=== PATIENT | female | born 1980 | race Caucasian/White ===

== ENCOUNTER → 2018-06-06 | Day surgery (SDC) | payer OTHER ==
[2018-05-29 10:21] VITALS: Ht 165.1 cm; Wt 71.4 kg
[~2018-06-06] VITALS: Ht 165.1 cm; Wt 71.4 kg
[~2018-06-06] MED LIST: ATROPINE SULFATE 0.1 MG/ML 5ML SYR IV PRN; CEFAZOLIN 2000MG IV PUSH 15 ML IV SCH; DIPH25CA5 PO; ERGO500037 PO; EpHEDrine SULFATE INJ 50 MG/ML AMP IV PRN; FENTANYL CITRATE INJ 50 MCG/1 ML 2 ML VIAL IV PRN; HYDR-5688 PO; HYDROCODONE/ACETAMIN 5/325MG TAB PO PRN; HYDROmorphone INJ 1 MG/ML SYR IV PRN; LACTATED RINGER'S 1000ML 1,000 ML IV SCH; LIDOCAINE HCL 1% 20 ML VIAL ONE; MIDAZOLAM HCL 1 MG/ML 2ML VIAL ONE; ONDANSETRON INJ 2 MG/ML 2 ML VIAL IV PRN; PHENYLEPHRINE 100MCG/ML 5ML SYR IV PRN; PROMETHAZINE HCL INJ 12.5 MG in SODIUM CHLORIDE 0.9% 50ML 50 ML IV PRN; PROPOFOL IV EMULSION 10 MG/ML 20 ML VIAL ONE; SERT50TA PO; SODIUM CHLORIDE 0.9% 1000ML 1,000 ML IV SCH
--- NOTE | 2018-06-06 13:13 | History & Physical Bridge - [place] ---
H&P Re-Evaluation Bridge Note: I have examined the patient, reviewed the History & Physical and in the interval since the performance of the History & Physical I have noted the following changes of clinical significance: No changes noted
--- NOTE | 2018-06-06 13:22 | Discharge Instructions-SurgCtr ---
Discharge Instructions Date of Service Jun 06, 2018. Visit Reason for Visit: Right Gluteal 3CM Lesion Discharge Discharge Diagnosis / Problem: skin lesion Discharge Goals Goal(s): Decrease discomfort, Improve function, Improve disease control Activity Recommendations Activity Limitations: as noted below Lifting Limitations: no more than 25 pounds Exercise/Sports Limitations: until after follow-up appointment May Resume Sexual Activity: when tolerated Shower/Bathe: tomorrow Driving or Machine Use: resume 1 day after discharge Anesthesia . Post Anesthesia Instructions: If you have had General Anesthesia or IV Sedation: * Do not drive today. * Resume driving when surgeon permits. * Do not make important decisions or sign legal documents today. * Call surgeon for: 1. Temperature elevations greater than 101 degrees F. 2. Uncontrollable pain. 3. Excessive bleeding. 4. Persistent nausea and vomiting. 5. Medication intolerance (nausea, vomiting or rash). * For nausea and vomiting use only clear liquids such as: tea, soda, bouillon until nausea subsides, then gradually increase diet as tolerated. * If you have any concerns or questions, call your surgeon's office. If physician is unavailable and it is an emergency, call 911 or go to the nearest emergency room. . Instructions / Follow-Up Instructions / Follow-Up SPECIAL CARE INSTRUCTIONS: * Cover incisions and change daily for comfort/drainage. * May use ibuprofen for pain as tolerated. * Expect some swelling and bruising. Call your doctor if: * Temperature above 101 degrees * Pain not relieved by pain medicine ordered * There is increased drainage or redness from any incision * You have any unanswered questions or concerns [phone]. FOLLOW UP VISIT: If not already scheduled, please call the office for a follow-up visit. for 2 weeks- suture removal OFFICE PHONE NUMBER: Dr. Landrum Office Diet Recommendations Home Diet: resume previous diet Pending Studies Studies pending at discharge: no Medical Emergencies . Who to Call and When: Medical Emergencies: If at any time you feel your situation is an emergency, please call 911 immediately. . Non-Emergent Contact Non-Emergency issues call your: Primary Care Provider, Surgeon . . "Provider Documentation" section prepared by Milo Landrum. .
[2018-06-06 14:05] VITALS: TEMP 36.7
--- NOTE | 2018-06-06 14:09 | [facility] Operative Report ---
Operative Report Operative Date Jun 06, 2018. Pre-Operative Diagnosis Right Gluteal Lesion Post-Operative Diagnosis Same Procedure(s) Performed Right Gluteal Lesion Excision Surgeon Dr. Landrum Machine Maintenance Surgeon(s) Edyta Castillo PA-C Estimated Blood Loss 10ml Specimens A. Right Gluteal Skin Lesion, silk suture is lateral, sent permanent per surgeon Drains None Anesthesia Type MAC Complication(s) none Disposition Recovery Room / PACU I attest to the content of the Intraoperative Record and any orders documented therein. Any exceptions are noted below.
--- NOTE | 2018-06-06 14:16 | OPERATIVE REPORT ---
DATE OF OPERATION: 06/06/2018 PROCEDURE: Excision of right gluteal skin lesion 4 x 2 cm, skin and subcutaneous tissue. STAFF SURGEON: Milo Landrum MD GAME DESIGN INSTRUCTOR: Drea Castillo PA-C ANESTHESIA: 1% plain lidocaine with sedation. DESCRIPTION OF PROCEDURE: The patient was brought in the operating room and placed on the operating room table in the prone position. Her right gluteal area was prepped and draped in usual fashion. She had a lesion which was approximately 2 cm in diameter, possibly slightly larger. This tissue was anesthetized using 1% plain lidocaine. Elliptical incision was made excising approximately 4 x 2 cm skin ellipse with subcutaneous tissue. It was marked with a silk suture lateral and sent for routine pathology. The subcutaneous tissue was reapproximated using 3-0 Vicryl suture, then the skin reapproximated using both 4-0 and 5-0 Prolene suture. Dressing applied and the patient transferred to recovery room in stable condition. I attest to the content of the Intraoperative Record and any orders documented therein. Any exception s are noted below.
[2018-06-06 14:33] VITALS: BP 113/72; PULSE 62; O2SAT 99
--- NOTE | 2018-06-06 14:45 | Anesthesia Progress Nt - [facility] ---
Anesthesia Post Op Note Date & Time Jun 06, 2018 at 14:45 Vital Signs Pain Intensity: 0 Vital Signs Past 12 Hours Date Time Temp Pulse Resp B/P (MAP) Pulse Ox O2 Delivery O2 Flow Rate FiO2 06/06/18 14:33 62 16 113/72 (86) 99 Room Air 06/06/18 14:05 36.7 46 16 123/51 (75) 97 Room Air 06/06/18 12:44 36.8 57 16 101/51 (68) 97 Room Air Notes Mental Status: alert / awake / arousable, participated in evaluation Pt Amnestic to Procedure: Yes Nausea / Vomiting: adequately controlled Pain: adequately controlled Airway Patency, RR, SpO2: stable & adequate BP & HR: stable & adequate Hydration State: stable & adequate Anesthetic Complications: no major complications apparent
== END | disposition home or self-care (01) ==
LOC: X.SURG 12:00
PROVIDERS: ATTEND Surgery
DX: L72.0 Epidermal cyst (principal); F32.9 Major depressive disorder, single episode, unspecified; F17.200 Nicotine dependence, unspecified, uncomplicated